=== PATIENT | male | born 1995 | race Two or more races ===

== ENCOUNTER 2017-03-26 19:41 | Emergency (ER) | payer SELFPAY ==
[2017-03-26 19:53] VITALS: BP 133/73; PULSE 78; TEMP 98.1; BMI 25.8
--- NOTE | 2017-03-26 19:53 | PDOC ---
Rapid Medical Evaluation Time Seen by Provider: 03/26/17 19:50 Medical Evaluation: 03/26/17 19:51 c/o discharge from the penis today no PMHX no surgical history
[2017-03-26 20:50] LABS: URINE APPEARANCE CLEAR; URINE BILIRUBIN NEGATIVE (NEGATIVE); URINE BLOOD NEGATIVE (NEGATIVE); URINE COLOR YELLOW; URINE GLUCOSE (UA) NEGATIVE (NEGATIVE); URINE KETONE NEGATIVE (NEGATIVE); URINE NITRITE NEGATIVE (NEGATIVE); URINE PROTEIN NEGATIVE (NEGATIVE); URINE UROBILINOGEN NEGATIVE mg/dL (0.2-1.0)
[2017-03-26] MEDS ORDERED: AZITHROMYCIN 500 MG TABLET ONE (22:18)
[2017-03-26] MEDS ORDERED: AZITHROMYCIN 500 MG TABLET PO ONE (22:19)
[2017-03-26 22:35] LABS: URINE LEUK ESTERASE Negative (NEGATIVE)
--- NOTE | 2017-03-26 22:52 | PDOC ---
History of Present Illness - General Chief Complaint: Penile Drainage Stated Complaint: FEVER/CRAMPING Time Seen by Provider: 03/26/17 19:50 Past History - Past Medical History Allergies/Adverse Reactions: Allergies Allergy/AdvReac Type Severity Reaction Status Date / Time No Known Allergies Allergy Verified 03/26/17 19:51 Home Medications: Ambulatory Orders NK [No Known Home Medication] 03/26/17 COPD: No - Suicide/Smoking/Psychosocial Hx Smoking History: Never smoked *Physical Exam - Vital Signs Last Vital Signs Temp Pulse Resp BP Pulse Ox 98.1 F 78 18 133/73 100 03/26/17 19:51 03/26/17 19:51 03/26/17 19:51 03/26/17 19:51 03/26/17 19:51 ED Treatment Course - ADDITIONAL ORDERS Additional order review: Laboratory Results 03/26/17 20:32 Urine Color Yellow Urine Appearance Clear Urine pH 5.0 Ur Specific [place] 1.029 Urine Protein Negative Urine Glucose (UA) Negative Urine Ketones Negative Urine Blood Negative Urine Nitrite Negative Urine Bilirubin Negative Urine Urobilinogen Negative Ur Leukocyte Esterase Negative - Medications Given in the ED: ED Medications Discontinued Medications Generic Name Dose Route Start Last Admin Trade Name Loganq PRN Reason Stop Dose Admin Azithromycin 1,000 mg 03/26/17 22:19 03/26/17 22:24 Azithromycin PO 03/26/17 22:20 1,000 mg ONCE ONE Administration Ceftriaxone Sodium 250 mg 03/26/17 22:20 03/26/17 22:24 Rocephin - IM 03/26/17 22:21 250 mg ONCE ONE Administration *DC/Admit/Observation/Transfer Diagnosis at time of Disposition: Screening for STD (sexually transmitted disease), Drainage from penis - Discharge Dispostion Disposition: HOME Condition at time of disposition: Stable Admit: No - Referrals Referrals: Paulino Riley MD [Staff Physician] - - Patient Instructions Printed Discharge Instructions: Facts About Sexually Transmitted Infections Additional Instructions: You were evaluated today for both gonorrhea and chlamydia. You were treated prophylactically in the emergency department today. He will be notified if the test is positive. You were urine was negative for infection. Please follow-up with your primary care doctor this week. Please have protected sex. Return to the emergency department if you have testicular pain, penile pain, fevers, chills or any changes in your symptoms. - Post Discharge Activity
--- NOTE | 2017-03-29 16:04 | PDOC ---
Patient Follow-up (Call Back) - Post ED Follow - Up Condition at time of discharge: Stable Disposition at time of original discharge: HOME Reason for Call Back: Abnwl. Microbiology (positive gonorrhea) - Disposition Rx Needed: No Additional Instructions/Notes: spoke with pt he is aware of the results. pt has been treated and he has been told to notify all his partners.
== END 2017-03-26 22:59 | disposition home or self-care (01) ==
LOC: JERFT 19:41
DX: Z11.3 Encounter for screening for infections with a predominantly sexual mode of transmission (principal)
CPT/HCPCS: 36415; 81003; 87081; 87086; 87491; 87591; 99281-25

== ENCOUNTER 2018-06-18 19:31 | Emergency (ER) | payer OTHER ==
[2018-06-18 19:38] VITALS: BP 150/92; PULSE 77; TEMP 98.2; BMI 26.6
[2018-06-18] MEDS ORDERED: IBUPROFEN 400 MG TABLET (FP) PO ONE ×2 (19:39→19:54)
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
== END 2018-06-18 20:43 | disposition home or self-care (01) ==
LOC: JERFT 19:31
DX: S16.1XXA Strain of muscle, fascia and tendon at neck level, initial encounter (principal); V49.59XA Passenger injured in collision with other motor vehicles in traffic accident, initial encounter; Y92.488 Other paved roadways as the place of occurrence of the external cause; Y93.89 Activity, other specified; Y99.8 Other external cause status
CPT/HCPCS: 99281-25

== ENCOUNTER 2020-11-06 21:33 | Emergency (ER) | payer OTHER ==
[2020-11-06 21:50] VITALS: TEMP 98.2; BMI 26.6
[2020-11-06] MEDS ORDERED: ACETAMINOPHEN 500 MG TABLET (FP) PO ONE (22:12)
[2020-11-06] MEDS ORDERED: DIPHTH,PERTUSS(ACELL),TET 0.5 ML DISP.SYRIN IM ONE ×2 (22:12→22:23)
[2020-11-06] MEDS ORDERED: ACETAMINOPHEN 325 MG TABLET (FP) ONE (22:23)
[2020-11-06 23:53] LABS: BASO % 0.8 % (0-2.0); HEMATOCRIT 41.7 % (35.4-49); HEMOGLOBIN 13.8 GM/dL (11.7-16.9); LYMPH % 29.2 % (8-40); MCH 25.8 pg (25.7-33.7); MCHC 33.2 g/dl (32.0-35.9); MEAN CELL VOLUME 77.9 fl (80-96); MEAN PLT VOLUME 9.1 fl (7.5-11.1); MONO % 8.6 % (3.8-10.2); NEUT % 59.4 % (42.8-82.8); PLATELET COUNT 188 10^3/uL (134-434); RBC 5.36 M/mm3 (4.00-5.60); RDW 13.1 % (11.9-15.9); WHITE BLOOD COUNT 8.3 K/mm3 (4.0-10.0)
[2020-11-07 00:13] LABS: BLOOD UREA NITROGEN 21.5 mg/dL (7-18); CALCIUM 9.3 mg/dL (8.5-10.1)
[2020-11-07 00:14] LABS: ALBUMIN 4.3 g/dl (3.4-5.0)
[2020-11-07 00:16] LABS: CREATININE 1.1 mg/dL (0.55-1.3)
[2020-11-07 00:18] LABS: BILIRUBIN,TOTAL 0.9 mg/dL (0.2-1); TOT PROT 7.7 g/dl (6.4-8.2)
[2020-11-07] MEDS ORDERED: BACITRACIN 15 GM TUBE TOPICAL OINTMENT ONE (01:21)
[2020-11-07 02:35] VITALS: BP 128/78; PULSE 70
== END 2020-11-07 02:35 | disposition home or self-care (01) ==
LOC: JER 21:33
PROC: 3E0234Z Introduction of Serum, Toxoid and Vaccine into Muscle, Percutaneous Approach (ICD-10-PCS; principal; 2020-11-06)
DX: S40.812A Abrasion of left upper arm, initial encounter (principal); S80.812A Abrasion, left lower leg, initial encounter
CPT/HCPCS: 36415; 71260-TC; 73070-TC-LT-FY; 73090-TC-LT-FY; 73110-TC-LT-FY; 73130-TC-LT-FY; 73564-TC-LT-FY; 74177-TC; 80053; 85025; 90715; 99285-25; Q9967